=== PATIENT | male | born 1975 | race Two or more races ===

== ENCOUNTER 2024-02-20 10:03 | Emergency (ER) | payer OTHER ==
[~2024-02-20] VITALS: Ht 172.7 cm; Wt 74.8 kg
[2024-02-20] MEDS ORDERED: ZETIA10 MG (10:28)
[2024-02-20] MEDS ORDERED: LIPITOR80 MG PO (10:28)
[2024-02-20] MEDS ORDERED: PEPCID AC20 MG (10:29)
[2024-02-20] MEDS ORDERED: CIPRO500 MG (10:29)
[2024-02-20] MEDS ORDERED: PROCTOZONE-HC30 GM (10:30)
[2024-02-20] MEDS ORDERED: FLAGYL375 MG PO (10:30)
[2024-02-20] MEDS ORDERED: 0.9 % SODIUM CHLORIDE 1,000 ML IV STA (10:58)
[2024-02-20] MEDS ORDERED: MEPERIDINE HCL/PF 50 MG/ML VIAL IM ONE (11:00)
[2024-02-20] MEDS ORDERED: PIPERACILLIN/TAZOBACTAM SODIUM 3.375 GM VIAL IV ONE (11:00)
[2024-02-20 11:30] LABS: HEMATOCRIT 44.6 % (39.0-48.0); HEMOGLOBIN 15.7 g/dL (13-16.00); MEAN CELL VOLUME 92.8 fL (80.0-100.00); MEAN CORPUSCULAR HEMOGLOBIN 32.6 pg (27.00-32.0); MEAN CORPUSCULAR HGB CONC 35.1 g/dl (32.0-36.0); PLATELET COUNT 210 K/uL (150-450); RED CELL DISTRIBUTION WIDTH 13.5 % (11.5-14.5)
[2024-02-20 11:58] LABS: INR 1.05; PARTIAL THROMBOPLASTIN TIME 26.5 SECONDS (22.0-34.0); PROTHROMBIN TIME 11.4 SECONDS (9.0-11.5)
[2024-02-20 12:00] LABS: CALCIUM 9.3 mg/dL (8.5-10.1); CREATININE SERUM 1.12 mg/dL (0.70-1.30); GFR 69.98; POTASSIUM 4.24 mEq/L (3.5-5.1)
[2024-02-20 12:37] LABS: URINE APPEARANCE Clear; URINE BILIRRUBIN Negative (NEGATIVE); URINE BLOOD Negative; URINE COLOR Yellow; URINE GLUCOSE Negative (NEGATIVE); URINE KETONE Negative (NEGATIVE); URINE LEUKOCYTE Negative; URINE NITRATE Negative; URINE PROTEIN Negative (NEGATIVE); URINE UROBILINOGEN 0.2 E.U./dl
[2024-02-20 12:55] LABS: URINE BACTERIA 1.2 uL (0.0-1933); URINE EPITHELIAL CELLS 0.4 uL (0.0-38.8); URINE RBC 1.2 uL (0.0-20.8); URINE WBC 0.6 uL (0.0-23.2)
== END 2024-02-20 15:57 | disposition home or self-care (01) ==
LOC: ER 10:05
PROVIDERS: Emergency Medicine
DX: K61.0 Anal abscess (principal); Z20.822 Contact with and (suspected) exposure to COVID-19; Z88.6 Allergy status to analgesic agent
CPT/HCPCS: 36415; 74177; Q9965

== ENCOUNTER → 2024-03-26 | Day surgery (SDC) | payer OTHER ==
[~2024-03-26] VITALS: Ht 172.7 cm; Wt 74.8 kg
[~2024-03-26] MED LIST: ACETAMINOPHEN 120 MG SUPP.RECT RECTAL ONE; BUPIVACAINE HCL 30 ML VIAL IJ ONE; BUPIVACAINE HCL/MPF 0.5% 30ML VIAL ONE; CEFTRIAXONE SODIUM 2,000 MG VIAL IV ONE; CEFTRIAXONE SODIUM 2,000 MG VIAL ONE; CIPRO500 MG; DIBUCAINE 30 GM TUBE ONE; DIBUCAINE 30 GM TUBE RECTAL ONE; FLAGYL375 MG PO; HEMOSTATIC MATRIX 1 KIT KIT TOP ONE; LIDOCAINE HCL 1%/EPINEPHRINE 20ML VIAL IJ ONE; LIPITOR80 MG PO; METRONIDAZOLE/SODIUM CHLORIDE 500 MG/100 ML PIGGYBACK IV ONE; PEPCID AC20 MG; PERCOCET 5-3251 EACH PO; POVIDONE-IODINE 118 ML BOTT TOP ONE; PROCTOZONE-HC30 GM; RECTICARE30 GM TOP; RINGERS SOLUTION,LACTATED 1,000 ML IV ONE; TAMSULOSIN HCL 0.4 MG CAP PO ONE; TAMSULOSIN HCL 0.4 MG CAP PO STA; ZETIA10 MG
--- NOTE | 2024-03-26 06:38 | NUR ---
PTE ALERTA Y ORIENTADO X3 REFEIRE DOLOR ANAL LUEGO SER DREANDO UN ABCESO PERIANAL POR DR MATHEW. SE [place] S/V Y SE UBICA
[2024-03-26 08:19] LABS: HEMATOCRIT 45.1 % (39.0-48.0); HEMOGLOBIN 15.5 g/dL (13-16.00); MEAN CELL VOLUME 93.5 fL (80.0-100.00); MEAN CORPUSCULAR HEMOGLOBIN 32.1 pg (27.00-32.0); MEAN CORPUSCULAR HGB CONC 34.3 g/dl (32.0-36.0); PLATELET COUNT 217 K/uL (150-450); RED BLOOD COUNT 4.82 M/uL (4.00-6.00)
[2024-03-26 09:14] LABS: INR 1.11; PARTIAL THROMBOPLASTIN TIME 28.3 SECONDS (22.0-34.0)
[2024-03-26 09:35] LABS: ALBUMIN 4.1 gm/dL (3.4-5.0); BILIRUBIN TOTAL 0.58 mg/dL (0.3-1.2); CALCIUM 9.3 mg/dL (8.5-10.1); CREATININE SERUM 1.16 mg/dL (0.70-1.30); GFR 67.2; GLOBULINA 3.1 G/DL (2.4-3.5); POTASSIUM 4.15 mEq/L (3.5-5.1); TOTAL PROTEIN 7.2 gm/dL (6.4-8.2)
[2024-03-26 22:05] VITALS: BP 127/65; O2SAT 99
== END | disposition home or self-care (01) ==
LOC: EDSTATUS 06:35 → ER 06:35 → SEC-K 08:19 → CIR.AMB 08:19 → O/R 14:15 → SEC-K 14:15 → O/R 18:45
PROVIDERS: ATTEND General Practice
DX: K60.30 Anal fistula, unspecified (principal)